=== PATIENT | female | born 1975 | race Caucasian/White ===

== ENCOUNTER 2021-03-17 08:47 | Outpatient (REF) | payer OTHER, SELFPAY ==
[2021-03-17 10:00] LABS: MANUAL DIFF FLAG NO
[2021-03-17 10:06] LABS: Basophils Absolute Auto 0.1 X10*3/uL (0.0-0.2); Basophils Percent Auto 0.8 % (0-2); Eosinophils Absolute Auto 0.2 X10*3/uL (0.0-0.4); Eosinophils Percent Auto 2.7 % (0-4); Hematocrit 38.7 % (37-47); Hemoglobin 12.8 g/dl (12.0-16.0); Imm Gran Abs Auto 0.02 X10*3/uL (0.00-0.03); Imm Gran Pct Auto 0.3 % (0.0-0.4); Lymphocytes Absolute Auto 2.1 X10*3/uL (1.2-4.9); Lymphocytes Percent Auto 33.3 % (20-40); Mean Corpuscular HGB Conc 33.1 g/dl (31.0-35.0); Mean Corpuscular Hemoglobin 31.9 pg (27.0-33.0); Mean Corpuscular Volume 96.5 fL (80-98); Mean Platelet Volume 10.7 fL (9.4-12.3); Monocytes Absolute Auto 0.4 X10*3/uL (0.1-1.2); Monocytes Percent Auto 6.9 % (2-11); Neutrophils Absolute Auto 3.5 X10*3/uL (2.0-8.3); Platelet Count 286 X10*3/uL (160-400); Red Blood Count 4.01 X10*6/uL (4.20-5.50); White Blood Count 6.3 X10*3/uL (4.8-10.8)
[2021-03-17 10:36] LABS: Alanine Aminotransferase 10 U/L (0-31); Alkaline Phosphatase 49 U/L (39-117); Anion Gap 10 (12-20); Aspartate Amino Transferase 11 U/L (5-31); Bilirubin Total 0.4 mg/dL (0.0-1.0); Blood Urea Nitrogen 20 mg/dL (9-16); Calcium 9.1 mg/dL (8.4-10.2); Carbon Dioxide 30 mmol/L (22-29); Chloride 104 mmol/L (96-108); Cholesterol 163 mg/dL; Estimated Glomerular Filt Rate > 60; Glucose Fasting 90 mg/dL (60-99); HDL Cholesterol 47 mg/dL; LDL Cholesterol Calculated 104 mg/dl; Potassium 4.5 mmol/L (3.3-5.1); Sodium 139 mmol/L (135-145); Total Protein 6.1 g/dL (6.5-8.0); Triglycerides 64 mg/dL
[2021-03-17 10:46] LABS: Vitamin D 25-OH Total 47.6 ng/mL (>30)
== END 2021-03-17 08:48 | disposition home or self-care (01) ==
LOC: HO.10HDL 08:47
PROVIDERS: Visit Provider Internal Medicine
DX: Z00.00 Encounter for general adult medical examination without abnormal findings (principal); E55.9 Vitamin D deficiency, unspecified
CPT/HCPCS: 36415; 80053; 80061; 82306; 85025

== ENCOUNTER 2022-03-07 09:58 | Outpatient (REF) | payer OTHER, SELFPAY ==
[2022-03-07 10:17] LABS: MANUAL DIFF FLAG NO
[2022-03-07 10:27] LABS: Basophils Percent Auto 0.6 % (0-2); Eosinophils Absolute Auto 0.1 X10*3/uL (0.0-0.4); Eosinophils Percent Auto 1.2 % (0-4); Hematocrit 41.8 % (37.0-47.0); Hemoglobin 13.7 g/dl (12.0-16.0); Imm Gran Abs Auto 0.02 X10*3/uL (0.00-0.03); Imm Gran Pct Auto 0.3 % (0.0-0.4); Lymphocytes Absolute Auto 1.9 X10*3/uL (1.2-4.9); Lymphocytes Percent Auto 29.2 % (20-40); Mean Corpuscular HGB Conc 32.8 g/dl (31.0-35.0); Mean Corpuscular Hemoglobin 31.4 pg (27.0-33.0); Mean Corpuscular Volume 95.7 fL (80.0-98.0); Mean Platelet Volume 9.7 fL (9.4-12.3); Monocytes Absolute Auto 0.5 X10*3/uL (0.1-1.2); Neutrophils Absolute Auto 4.1 x10*3/uL (2.0-8.3); Neutrophils Percent Auto 61.7 % (45-73); Platelet Count 311 X10*3/uL (160-400); Red Blood Count 4.37 X10*6/uL (4.20-5.50); Red Cell Distribution Width 13.2 % (11.0-16.0); White Blood Count 6.6 X10*3/uL (4.8-10.8)
[2022-03-07 11:16] LABS: Alanine Aminotransferase 10 U/L (0-31); Albumin Level 4.4 g/dL (3.5-5.0); Alkaline Phosphatase 55 U/L (39-117); Anion Gap 12 (12-20); Aspartate Amino Transferase 15 U/L (5-31); Bilirubin Total 0.6 mg/dL (0.0-1.0); Blood Urea Nitrogen 18 mg/dL (9-16); Calcium 9.8 mg/dL (8.4-10.2); Carbon Dioxide 25 mmol/L (22-29); Chloride 106 mmol/L (96-108); Cholesterol 203 mg/dL; Estimated Glomerular Filt Rate > 60; Glucose Random 93 mg/dL (60-115); Potassium 5.2 mmol/L (3.3-5.1); Sodium 138 mmol/L (135-145); Total Protein 7.3 g/dL (6.5-8.0)
== END 2022-03-07 09:59 | disposition home or self-care (01) ==
LOC: HO.10HDL 09:58
PROVIDERS: Visit Provider Internal Medicine
DX: Z00.00 Encounter for general adult medical examination without abnormal findings (principal)
CPT/HCPCS: 36415; 80053; 82465; 85025

== ENCOUNTER 2023-05-27 08:21 | Outpatient (REF) | payer OTHER, SELFPAY ==
[2023-05-27 08:38] LABS: MANUAL DIFF FLAG NO
[2023-05-27 08:53] LABS: Basophils Percent Auto 0.6 % (0-2); Eosinophils Absolute Auto 0.2 X10*3/uL (0.0-0.4); Eosinophils Percent Auto 3.2 % (0-4); Hematocrit 41.1 % (37.0-47.0); Hemoglobin 13.6 g/dl (12.0-16.0); Imm Gran Abs Auto 0.01 X10*3/uL (0.00-0.03); Imm Gran Pct Auto 0.2 % (0.0-0.4); Lymphocytes Absolute Auto 2.3 X10*3/uL (1.2-4.9); Mean Corpuscular HGB Conc 33.1 g/dl (31.0-35.0); Mean Corpuscular Hemoglobin 31.9 pg (27.0-33.0); Mean Corpuscular Volume 96.5 fL (80.0-98.0); Mean Platelet Volume 9.5 fL (9.4-12.3); Monocytes Absolute Auto 0.4 X10*3/uL (0.1-1.2); Monocytes Percent Auto 6.6 % (2-11); Neutrophils Absolute Auto 3.6 x10*3/uL (2.0-8.3); Neutrophils Percent Auto 54.4 % (45-73); Platelet Count 292 X10*3/uL (160-400); Red Blood Count 4.26 X10*6/uL (4.20-5.50); Red Cell Distribution Width 13.3 % (11.0-16.0); White Blood Count 6.6 X10*3/uL (4.8-10.8)
[2023-05-27 10:29] LABS: Alanine Aminotransferase 10 U/L (0-31); Albumin Level 3.9 g/dL (3.5-5.0); Alkaline Phosphatase 56 U/L (39-117); Anion Gap 9 (12-20); Aspartate Amino Transferase 12 U/L (5-31); Bilirubin Total 0.4 mg/dL (0.0-1.0); Blood Urea Nitrogen 17 mg/dL (9-16); Calcium 8.9 mg/dL (8.4-10.2); Carbon Dioxide 28 mmol/L (22-29); Chloride 109 mmol/L (96-108); Cholesterol 198 mg/dL; Estimated Glomerular Filt Rate > 60; Glucose Fasting 80 mg/dL (60-99); HDL Cholesterol 62 mg/dL; LDL Cholesterol Calculated 127 mg/dl; Potassium 4.7 mmol/L (3.3-5.1); Sodium 141 mmol/L (135-145); Total Protein 6.4 g/dL (6.5-8.0); Triglycerides 47 mg/dL
[2023-05-27 10:46] LABS: Vitamin D 25-OH Total 21.1 ng/mL (>30)
== END 2023-05-27 08:22 | disposition home or self-care (01) ==
LOC: HO.LAB 08:21
PROVIDERS: PCP Internal Medicine; Visit Provider Internal Medicine
DX: E55.9 Vitamin D deficiency, unspecified (principal); M19.011 Primary osteoarthritis, right shoulder; M19.012 Primary osteoarthritis, left shoulder; E66.3 Overweight; Z83.3 Family history of diabetes mellitus; Z82.49 Family history of ischemic heart disease and other diseases of the circulatory system
CPT/HCPCS: 36415; 80053; 80061; 82306; 85025

== ENCOUNTER 2024-04-22 14:30 | Outpatient (REF) | payer OTHER, SELFPAY ==
[2024-04-22 14:48] LABS: MANUAL DIFF FLAG NO
[2024-04-22 15:09] LABS: Basophils Percent Auto 0.4 % (0-2); Eosinophils Absolute Auto 0.1 X10*3/uL (0.0-0.4); Eosinophils Percent Auto 1.1 % (0-4); Hematocrit 42.9 % (37.0-47.0); Hemoglobin 14.7 g/dl (12.0-16.0); Imm Gran Abs Auto 0.03 X10*3/uL (0.00-0.03); Imm Gran Pct Auto 0.3 % (0.0-0.4); Lymphocytes Absolute Auto 2.5 X10*3/uL (1.2-4.9); Lymphocytes Percent Auto 26.8 % (20-40); Mean Corpuscular HGB Conc 34.3 g/dl (31.0-35.0); Mean Corpuscular Hemoglobin 32.2 pg (27.0-33.0); Mean Corpuscular Volume 94.1 fL (80.0-98.0); Mean Platelet Volume 9.8 fL (9.4-12.3); Monocytes Absolute Auto 0.5 X10*3/uL (0.1-1.2); Monocytes Percent Auto 5.1 % (2-11); Neutrophils Absolute Auto 6.3 x10*3/uL (2.0-8.3); Neutrophils Percent Auto 66.3 % (45-73); Platelet Count 323 X10*3/uL (160-400); Red Blood Count 4.56 X10*6/uL (4.20-5.50); Red Cell Distribution Width 13.3 % (11.0-16.0); White Blood Count 9.5 X10*3/uL (4.8-10.8)
[2024-04-22 15:50] LABS: Alanine Aminotransferase 11 U/L (0-31); Albumin Level 4.6 g/dL (3.5-5.0); Alkaline Phosphatase 53 U/L (39-117); Anion Gap 11 (12-20); Aspartate Amino Transferase 15 U/L (5-31); Bilirubin Total 0.3 mg/dL (0.0-1.0); Blood Urea Nitrogen 24 mg/dL (9-16); Calcium 9.7 mg/dL (8.4-10.2); Carbon Dioxide 29 mmol/L (22-29); Chloride 105 mmol/L (96-108); Cholesterol 251 mg/dL (<200); Estimated Glomerular Filt Rate > 60; Glucose Fasting 82 mg/dL (60-99); Potassium 4.7 mmol/L (3.3-5.1); Sodium 140 mmol/L (135-145); Total Protein 7.6 g/dL (6.5-8.0)
[2024-04-22 16:06] LABS: Thyroid Stimulating Hormone 1.47 uIU/mL (0.32-4.0); Vitamin D 25-OH Total 24.9 ng/mL (>30)
== END 2024-04-22 14:31 | disposition home or self-care (01) ==
LOC: HO.LAB 14:30
PROVIDERS: PCP Internal Medicine; Visit Provider Internal Medicine
DX: E55.9 Vitamin D deficiency, unspecified (principal); R63.5 Abnormal weight gain
CPT/HCPCS: 36415; 80053; 82306; 82465; 84443; 85025

== ENCOUNTER 2025-04-23 10:09 | Outpatient (AMB) | payer BC, SELFPAY ==
--- NOTE | 2025-04-23 10:11 | MHC.PC.OV ---
Vital Signs 04/23/25 10:17 Height 5 ft 3.5 in Weight 102.058 kg BMI 39.2 BP 106/84 Respiration 16 Pulse 62 Pulse Source Pulse Oximeter Temp 96.9 F Temp Source Temporal Artery Scan Pulse Oximetry (%) 99 Oxygen Delivery Method Room Air Intake Visit Reasons: routine - see comments Parks And Recreation Manager Required: No Accompanied by: Self / Same As Patient Allergies No Known Allergies (No Known Allergies*) Allergy (Unverified 04/23/25 10:11) HPI HPI Comments History of Present Illness Details Concerns: none weight watchers for a while. expensive. in process of switching job. works maintenance in elderly, now at [employer] at [employer]. sun screen protein shakes- fills somewhat . no formal exercise chronic shoulder pain - has seen ortho- reconst surgery 7-8 hours labrum, cuff, ligaments, screw, anchors fiberoptic wire R. awaiting repacement 6 years. L arm overuse as couldnt use R. soma night. oxy bid. end of day. on way home, and bedtime. neos- 2 years ago shoulder. 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 1. Little interest or pleasure in doing things: not at all 2. Feeling down, depressed, or hopeless: not at all 3. Trouble falling or staying asleep, or sleeping too much: several days 4. Feeling tired or having little energy: several days 5. Poor appetite or overeating: not at all 6. Feeling bad about yourself - or that you are a failure or have let yourself or your family down: not at all 7. Trouble concentrating on things, such as reading the newspaper or watching television: not at all 8. Moving or speaking so slowly that other people could have noticed. Or the opposite - being so fidgety or restless that you have been moving around a lot more than usual: not at all 9. Thoughts that you would be better off or of hurting yourself in some way: not at all Total score: 2 Depression Screening Interpretation: Negative Depression Screening Done: Yes 76129 - PHQ-9 Billing: Yes Source: Developed by Drs. Marino Holman, Jennifer Saenz, Homar Rouse and colleagues, with an educational kiki from [employer]. Thrive Questionnaire Date Thrive assessed: 04/23/25 I am a: Patient What is your living situation today?: I have a steady place to live Within the past 12 months, did the food you bought not last and you didn't have the money to get more?: Never true Within the past 12 months, did you worry whether your food would run out before you got money to buy more?: Never true Do you have trouble paying for medicines?: No Do you have trouble getting transportation to medical appointments?: No Do you have trouble paying your heating and electricity bill?: No Do you have trouble taking care of your child, family member or friend?: No Do you have trouble with day-to-day activities such as bathing, preparing meals, shopping, managing finances, etc.?: No Are you currently unemployed and looking for a job?: No Are you interested in more education?: No Please select the resources that you would like help with: None THRIVE Score: 0 RICHARD-7 AMB Questionnaire RICHARD-7 Date RICHARD - 7 assessed: 04/23/25 Feeling nervous, anxious, or on edge: 0 = Not at all Not being able to stop or control worryin = Several days Worrying too much about different things: 1 = Several days Trouble relaxin = Not at all Being so restless that it is hard to sit still: 0 = Not at all Becoming easily annoyed or irritable: 0 = Not at all Feeling afraid as if something awful might happen: 0 = Not at all Total RICHARD-7 score (0-4 normal; 5-9 mild; 10-14 moderate; 15-21 severe): 2 Source: Developed by Drs. Marino Holman, Jennifer Saenz, Homar Rouse and colleagues, with an educational kiki from [employer]. Physical exam (Primary Care) Vital Signs: Last Vital Signs Temp 96.9 F 04/23/25 10:17 Pulse 62 04/23/25 10:17 Resp 16 04/23/25 10:17 BP 106/84 04/23/25 10:17 Pulse Ox 99 04/23/25 10:17 Oxygen Delivery Method Room Air 04/23/25 10:17 BMI result Body Mass Index 39.2 Tobacco/Smoking Status: Tobacco use Status Patient Tobacco Use Status Former Tobacco user 04/23/25 10:19 Depression Screening Interpretation: Negative Coding Level of Care Code New Pt Level 4 (76060) Complex EM visit Add On G2211 Diagnoses Chronic pain of both shoulders M25.511; M25.512; G89.29 Vitamin D deficiency E55.9 Obesity E66.9 Generalized anxiety disorder F41.1 Additional Codes PHQ-9 - 94515 - PHQ-9 Billing: Yes ([id number]) Assessment & Plan Assessment & Plan (1) Chronic pain of both shoulders: Code(s): M25.511 - Pain in right shoulder; M25.512 - Pain in left shoulder; G89.29 - Other chronic pain Category: Medical Plan: Stable overall. Pain managed with oxycodone 5 mg twice daily as needed and Soma at bedtime. Mass pat reviewed (2) Vitamin D deficiency: Code(s): E55.9 - Vitamin D deficiency, unspecified Category: Medical Plan: Vitamin-D level ordered (3) Obesity: Code(s): E66.9 - Obesity, unspecified Category: Medical Plan: Weight loss efforts encouraged. Advised to download sangeeta to help track calories and macros and helped to maintain calorie deficit. Recommend diet higher in protein, fruits, vegetables and lower and refined sugars, simple carbohydrates, and highly processed foods. Recommend initiating formal exercise routine. (4) Generalized anxiety disorder: Code(s): F41.1 - Generalized anxiety disorder Category: Medical Plan: Stable. Richard 7 scores 2. Continue with positive coping mechanisms. Plan Follow-up in the office in 4 months for annual physical exam. Advised to present to the office several days prior to visit for labs to be completed. Orders: Orders Basic Metabolic Panel 4 Months E55.9 - Vitamin D deficiency, unspecified, E66.9 - Obesity, unspecified, G89.29 - Other chronic pain, M25.511 - Pain in right shoulder, M25.512 - Pain in left shoulder, Z00.00 - Encounter for general adult medical examination without abnormal findings Complete Blood Count Auto Diff 4 Months E55.9 - Vitamin D deficiency, unspecified, E66.9 - Obesity, unspecified, G89.29 - Other chronic pain, M25.511 - Pain in right shoulder, M25.512 - Pain in left shoulder, Z00.00 - Encounter for general adult medical examination without abnormal findings Hemoglobin A1c 4 Months E55.9 - Vitamin D deficiency, unspecified, E66.9 - Obesity, unspecified, G89.29 - Other chronic pain, M25.511 - Pain in right shoulder, M25.512 - Pain in left shoulder, Z00.00 - Encounter for general adult medical examination without abnormal findings Lipid Panel 4 Months E55.9 - Vitamin D deficiency, unspecified, E66.9 - Obesity, unspecified, G89.29 - Other chronic pain, M25.511 - Pain in right shoulder, M25.512 - Pain in left shoulder, Z00.00 - Encounter for general adult medical examination without abnormal findings Vitamin D 25-OH Total 4 Months E55.9 - Vitamin D deficiency, unspecified, E66.9 - Obesity, unspecified, G89.29 - Other chronic pain, M25.511 - Pain in right shoulder, M25.512 - Pain in left shoulder, Z00.00 - Encounter for general adult medical examination without abnormal findings Liver Panel 4 Months E55.9 - Vitamin D deficiency, unspecified, E66.9 - Obesity, unspecified, G89.29 - Other chronic pain, M25.511 - Pain in right shoulder, M25.512 - Pain in left shoulder, Z00.00 - Encounter for general adult medical examination without abnormal findings
[2025-04-23 10:17] VITALS: BP 106/84; PULSE 62; RESP 16; TEMP 36.1; O2SAT 99; BMI 39.2
--- OUTSIDE RECORDS SUMMARY | 2025-04-23 11:29 | XMS_ITS | Data Portability ---
Author Organization [place] [facility] Address [address] [place] [address] Assessment No assessment recorded. Plan of Treatment Reminders Order Date Submit Date Provider Last Modified By Organization Details Last Modified Time Details Appointments None recorded. Lab None recorded. Referral physical therapist referral - (THIS PRESCRIPTIO N EXPIRES 30 DAYS FROM DATE LISTED)PHYS ICAL THERAPY REFERRAL ICD-10: M70.61 (right) Right hip greater trochanteri c bursitis1. Core stabilizati on, hip abductor strengtheni ng with focus on eccentric strengtheni ng and balance training.2. Soft tissue modalities including foam rollers as needed.3. Home exercise and stretching program.All ow 2-3 visits a week for 6 weeks.Compl eted by: rajni 2023 024 [email or web address] [id number] Not available 4 11:41:38 Procedures None recorded. Surgeries None recorded. Imaging XR, hip, unilateral, 2 or 3 view 2023 024 [email or web address] Not available 4 12:04:28 Medication Orders None recorded. Patient TargetsNo targets recorded. Patient InstructionsNo instructions recorded. Reason for Referral Physical Therapist Referral for Trochanteric bursitis of right hip (THIS PRESCRIPTION EXPIRES 30 DAYS FROM DATE LISTED)PHYSICAL THERAPY REFERRAL ICD-10: M70.61 (right) Right hip greater trochanteric bursitis1. Core stabilization, hip abductor strengthening with focus on eccentric strengthening and balance training.2. Soft tissue modalities including foam rollers as needed.3. Home exercise and stretching program.Allow 2-3 visits a week for 6 weeks.Completed by: rajni Referring Physician: Cate Galloway, Orthopedic Surgery, [id number] Encounter Date: 02/08/2024 Results Created Date Observation Date Name Description Value Unit Range Abnormal Flag Note LastModifiedBy Organization Detail LastModifiedTime 07/06/2008/06/2019 imagi ng/di agnos tic resul t No observ ation record ed. [email or web address] Not Available 06/08 01:29:38 07/06/2008/06/2019 imagi ng/di agnos tic resul t No observ ation record ed. [email or web address] Not Available 06/08 01:29:39 Result Notes None recorded. Problems Name Problem SNOMED Code Status Onset Date Resolution Date Notes Provider Name and Address Organization Details Recorded Time Pain of hip region 38751362 Active 024 leatha quinones [facility] 02/08/2024 10:54:30 Pain of hip region 90715703 [facility] 02/08/2024 10:55:01 Problem Notes None recorded. Procedures Surgical History Date Name Laterality Status Provider Name and Address Organization Details Recorded Time Hip Kenalog 1cc Injection, L/R completed Cate Galloway PA-C [address] [facility] [address], [place], [address], [facility] 02/08/2024 17:45:19 Imaging Results None recorded. Procedure Notes None recorded. Medical Equipment None Reported. Allergies No known drug allergies Medications Name Sig Start Date Stop Date Status Note LastModified by Organization Details LastModified Time carisoprodol 350 mg tablet TAKE 1 TABLET BY MOUTH EVERY NIGHT active Not Available Not Available No t Available oxycodone 5 mg tablet TAKE 1 TABLET BY MOUTH TWICE DAILY active Not Available Not Available No t Available Vitals Date Recorded Body height Body mass index (BMI) Body weight Provider Name and Address Organization Details Last Updated DateTime 02/08/2024 160.02 cm 35.4 kg/m2 25217.47 g leatha quinones [facility] 02/08/2024 10:56:42 Social History None recorded. Functional Status None recorded. Mental Status None recorded. Family History Nothing Reported. Medical History No medical history recorded. Gynecological HistoryNo gynecological history recorded. Obstetrics History GPAL:G 0 P 0 0 0 0 Past Encounters Encounter ID Performer Location Encounter Start Date Encounter Closed Date Diagnosis/Indication Diagnosis SNOMED-CT Code Diagnosis ICD10 Code Diagnosis Note [id number] Cate Galloway PA-C [facility] [address] [place] [address] 02/08/2024 10:19:52 03/05/2024 20:52:25 Pain of hip region 33893390 M25.551 Trochanter ic bursitis of right hip 4450837231 68887 M70.61 Health Concerns Section Related Observation LastModified by Organization Detai ls LastModified Time None Recorded Concern Status LastModified by Organization Details LastModified Time None Recorded Advance Directives Directive None Recorded Payers Insurance Date Sequence Insurance Name Policy Number Policy Rubin Covered Member ID Rubin Member ID Guarantor Name 03/26/2024 1 [facility] [id number] Noemí Mccallumlaureen [id number] Noemí Rochelleaidanlaureen 02/08/2024 1 [facility] [place] [id number] Noemí Mccallumllsaul [id number] Noemí Mccallumserenitysaul Notes Date Note Type Note Provider Name and Address Organization Details Recorded Time 02/08/2024 text/html I am seeing the patient today under the supervision of Dr. Ayala who was available but who did not see the patient. HPI:Noemí presents to the office today for an evaluation of her right hip. She admits to lateral hip pain which has been present for many months. No recent trauma. She describes her pain as being in the region of the greater trochanter which at times radiates down the IT band to the knee. Symptoms are most significant was sleeping at night, prolonged sitting, getting up from a seated position, and climbing stairs. She denies any groin pain. She will take rydl-epl-unulmvy medication intermittently. She is here today for treatment recommendations. PMH/PSH/MEDS/ALL/FMH/ SOC HX/ROS are reviewed in detail per my medical intake sheet. General Exam: Vital signs are as noted below Mental status: Alert and lucid. Normal insight, affect and grooming. RECEIVING COORDINATOR: Gross motor coordination is intact. No spasticity or clonus noted. EXAMINATION: The patient is well appearing and in no apparent distress. Alert and oriented x3. Gait is antalgic. Right hip reveals no obvious deformity upon inspection. No edema, erythema, ecchymosis, or lesions. Neurovascularly intact. Tenderness present over the greater trochanter. ROM full in all planes. Negative impingement sign, Terrence's, Stinchfield test, and straight leg raise. No instability. 5/5 strength. Calf/leg compartments soft and compressible. Contralateral hip reveals no obvious deformity upon inspection. No edema, erythema, ecchymosis, or lesions. Neurovascularly intact. No localized tenderness. ROM full in all planes. Negative impingement sign, Terrence's, Stinchfield test, and straight leg raise. No instability. 5/5 strength. Calf/leg compartments soft and compressible. Lumbar spine reveals no obvious deformities upon inspection. No edema, erythema, ecchymosis, or lesions. ROM is full and pain free. Straight leg raise is negative in the sitting and supine position. No focal neurologic deficits in the lower extremities. X-rays ordered, obtained and reviewed at [facility] today include an AP pelvis and lateral view of right hip. Images reveal the joint spaces to be well maintained. There is hip dysplasia bilaterally. No evidence for an acute fracture or lesion. IMPRESSION: Right hip greater trochanteric bursitis PLAN: The patient was thoroughly counseled today regarding their hip condition, its natural history, and the treatment options including physical therapy, medication, and a corticosteroid injection. The patient is interested in receiving an injection with corticosteroid. Right trochanteric region was prepped sterilely, and injection was administered at the point of maximum tenderness utilizing 40mg of Kenalog and 4cc of 0.25% Marcaine. The patient tolerated the procedure well. Post-injection precautions were discussed. A prescription for physical therapy has been provided. I will see her back in the office in 6 weeks for recheck. All questions have been answered. [employer] [facility] speech recognition geneticist software was used to create portions of this document. An attempt at proofreading has been made to minimize errors. Please call for corrections. Cate Galloway PA-C [address], [place], [address], [facility] 02/08/2024 17:46:29 OBGyn Episode No OBEpisode recorded.
== END 2025-04-23 10:46 | disposition home or self-care (01) ==
LOC: HO.HMCHD 10:10
PROVIDERS: PCP Internal Medicine; Visit Provider Physician Assistant
DX: M25.511 Pain in right shoulder (principal); M25.512 Pain in left shoulder; G89.29 Other chronic pain; E55.9 Vitamin D deficiency, unspecified; E66.9 Obesity, unspecified; F41.1 Generalized anxiety disorder

== ENCOUNTER → 2025-04-23 10:09 | Outpatient (BNVA) | payer BC, SELFPAY | PROVIDERS: PCP Internal Medicine; Visit Provider Physician Assistant | DX: M25.511 Pain in right shoulder (principal); M25.512 Pain in left shoulder; G89.29 Other chronic pain; F41.1 Generalized anxiety disorder; E66.9 Obesity, unspecified; E55.9 Vitamin D deficiency, unspecified; Z79.891 Long term (current) use of opiate analgesic; Z13.31 Encounter for screening for depression; Z13.30 Encounter for screening examination for mental health and behavioral disorders, unspecified | CPT/HCPCS: 96127 ==

== ENCOUNTER 2025-09-01 15:59 | Outpatient (AMB) | payer BC, SELFPAY ==
--- OUTSIDE RECORDS SUMMARY | 2024-12-02 05:30 | XMS_ITS ---
Author Organization [facility] Address [address] [place] [address] Care Team Providers Care Oxygen Therapist Name Role Phone Raya (RETIRED) Jerrell CHAO Primary Care Provide Marino Tom [phone] REASON FOR VISIT screening Encounters Encounter Location Date Provider Diagnosis [facility] Outpatient [address] [place], [place] [id number] 12/02/2024 Marino Galeas Plan Of Treatment No Information Progress Notes * MIKE GOMEZDOB: [birth year] (49 yo F)Acc No.[id number]:12/02/2024 COLON WITH MAC Patient: MIKE HDZ Provider: Damien Galeas MD :1975 A ge:49 Y S ex:Female Date:12/02/2024 Address:[address] [place], [place] [id number] Pcp:Jerrell Dos Santos (RETIRED )MD Subjective: * Chief Complaints: * 1 . Screening. * Medical History: Objective: * Vitals: Assessment: Plan: * Treatment: * * The named appointment provid er may or may not be the originator of this progress note, and it is not deemed complete until electronically signed by the appointment provider. Sign off status: Pending * Provider: Damien Galeas MD Date: 0 12/02/2024 Generated for Printi ng/Faxing/eTransmitting on: 06:58 PM EDT
--- OUTSIDE RECORDS SUMMARY | 2025-03-05 04:30 | XMS_ITS ---
Author Organization [facility] Address [address] [place] [address] Care Team Providers Care Pharmacology Associate Name Role Phone Raya (RETIRED) Jerrell CHAO Primary Care Provide Marino Tom [phone] REASON FOR VISIT screening Encounters Encounter Location Date Provider Diagnosis [facility] Outpatient [address] [place], [place] [phone] 03/05/2025 Marino Galeas Plan Of Treatment No Information Progress Notes * MIKE GOMEZDOB: [birth year] (49 yo F)Acc No.[id number]:03/05/2025 COLON WITH MAC Patient: MIKE HDZ Provider: Damien Galeas MD :1975 A ge:49 Y S ex:Female Date:03/05/2025 Address:[address] [place], [place] [phone] Pcp:Jerrell Dos Santos (RETIRED )MD Subjective: * [...] Galeas MD Date: 0 03/05/2025 Generated for Printi ng/Faxing/eTransmitting on: 1 06:58 PM EDT
--- NOTE | 2025-09-01 14:41 | A.OFFPC_ITS ---
Vital Signs 09/01/25 16:07 Height 5 ft 2.6 in Weight 95.708 kg BMI 37.9 BP 138/80 Blood Pressure Location Lt brachial Position Sitting Respiration 18 Pulse 78 Pulse Source Pulse Oximeter Temp 97.5 F Temp Source Temporal Artery Scan Pulse Oximetry (%) 98 Oxygen Delivery Method Room Air Intake Visit Reasons: 4 Month F/U Emergency Specialist Required: No Accompanied by: Self / Same As Patient Allergies No Known Allergies (No Known Allergies*) Allergy (Verified 09/01/25 14:42) Tobacco use date assessed: 09/01/25 Dental Screening Dental Screen Date: 09/01/25 Did you have a dental visit in the last 12 months?: No Did you have a dental problem in the last 6 months where you did not have access to dental care?: No Was dental information given to patient?: Patient has dentist HPI HPI Comments History of Present Illness0 Details 49-year-old female with history of basal cell carcinoma, chronic pain of the shoulders bilaterally, vitamin-D deficiency, anxiety, obesity presents to the office today for management of chronic conditions and follow-up. Vitamin-D deficiency-taking multivitamin but not taking stand-alone vitamin-D supplement Basal cell carcinoma-follows with dermatology, s/p Mohs procedure Generalized anxiety disorder-not on any anxiolytics. Does not follow with therapy. Reports generalized stress related to her job and is also currently going through a divorce. However, manages her symptoms with mindfulness as well as reiki. No depressive symptoms Concerns: Chronic pain of the shoulders bilaterally- follows with new dose. Underwent reconstructive reconst surgery 7-8 hours labrum, cuff, ligaments, screw, anchors fiberoptic wire. Underwent 9 months of physical therapy. Left arm now with pain from overuse as she was unable to use her right arm for years. Reports she will need bilateral shoulder replacements in several years. She is chronically on Soma and uses oxycodone as needed. none Obesity-started Zepbound following last visit. Tolerating well without any adverse side effects. Does report decreased appetite and cravings. Still eating regularly throughout the day with emphasis on protein. Has lost 14 lb since last visit. She is not exercising formally. Considering increase in dose at next refill Concerns: None Health maintenance: Last screening mammogram 02/2021, overdue. 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 No sore throat, nasal congestion, rhinorrhea, sinus pain, ear pain Cardiovascular: No chest pain, palpitations, or leg edema Respiratory: No shortness of breath, wheezing, cough GI: No abdominal pain, nausea, vomiting, diarrhea, constipation, melena, hematochezia : No dysuria, hematuria, increased urinary frequency, decreased urinary output MSK: See HPI Neuro: No headaches, weakness, paresthesias Skin: No rashes or lesions EXAM: Constitutional - Awake and Alert, No apparent distress Eyes - PERRL Cardiovascular - S1S2, RRR, No edema Respiratory - Normal lung expansion, Normal respiratory effort, No respiratory distress, CTA bilaterally Extremities - no calf tenderness bilaterally, no swelling Skin - Warm/Dry Neurological - Alert & oriented x3 Psychological - Appropriate affect PFSH Medical History (Updated 04/23/25 @ 10:50 by DAWN Guerrero) Obesity Vitamin D deficiency Chronic pain of both shoulders Generalized anxiety disorder Basal cell carcinoma Surgical History (Updated 03/03/25 @ 11:09 by Lisa Elise, BETTY) Hx of knee surgery Hx of shoulder surgery (2019) Hx of shoulder surgery Social History (Updated 03/03/25 @ 11:15 by Lisa Elise RN) Housing: Apartment Patient Tobacco Use Status: Former Tobacco user Years Smoked: 10 years e-Cigarette/Vaping Use: Never Used service: No Current occupational status: employed 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 How often do you have a drink containing alcohol?: Monthly or less 2. How many drinks containing alcohol do you have on a typical day when you are drinking?: 1 or 2 3. How often do you have six or more drinks on one occasion?: Never Total Score: 1 RICHARD-7 AMB Questionnaire RICHARD-7 Date RICHARD - 7 assessed: 04/23/25 Source: Developed by Drs. Marino Holman, Jennifer Saenz, Homar Rouse and colleagues, with an educational kiki from [employer]. Physical exam (Primary Care) Vital Signs: Last Vital Signs Temp 97.5 F 09/01/25 16:07 Pulse 78 10/27/25 16:07 Resp 18 09/01/25 16:07 BP 138/80 09/01/25 16:07 Pulse Ox 98 09/01/25 16:07 Oxygen Delivery Method Room Air 09/01/25 16:07 BMI result Body Mass Index 37.9 Tobacco/Smoking Status: Tobacco use Status Tobacco use date assessed 09/01/25 09/01/25 14:42 Patient Tobacco Use Status Former Tobacco user 09/01/25 14:42 e-Cigarette/Vaping Use Never Used 09/01/25 16:10 Thrive Assessment: Date of Thrive Assessment Date Thrive assessed 04/23/25 09/01/25 14:42 Coding Level of Care Code Est Pt Level 4 (61501) Complex EM visit Add On G2211 Diagnoses Chronic pain of both shoulders M25.511; M25.512; G89.29 Vitamin D deficiency E55.9 Obesity E66.9 Generalized anxiety disorder F41.1 Assessment & Plan Assessment & Plan (1) Chronic pain of both shoulders: Code(s): M25.511 - Pain in right shoulder; M25.512 - Pain in left shoulder; G89.29 - Other chronic pain Category: Medical Plan: Stable overall. Pain managed with oxycodone 5 mg twice daily as needed and Soma at bedtime. Mass pat reviewed (2) Vitamin D deficiency: Code(s): E55.9 - Vitamin D deficiency, unspecified Category: Medical Plan: Vitamin-D level ordered (3) Obesity: Code(s): E66.9 - Obesity, unspecified Category: Medical Plan: Weight loss efforts encouraged. Advised to download sangeeta to help track calories and macros and helped to maintain calorie deficit. Recommend diet higher in protein, fruits, vegetables and lower and refined sugars, simple carbohydrates, and highly processed foods. Recommend initiating formal exercise routine. Continue with Zepbound, can increase to 5 mg weekly at if she desires (4) Generalized anxiety disorder: Code(s): F41.1 - Generalized anxiety disorder Category: Medical Plan: Stable. Richard 7 scores 2. Continue with positive coping mechanisms. Plan Follow-up in the office in 6 months for follow-up. Labs to be completed today Orders: Orders Vitamin B12 Today E55.9 - Vitamin D deficiency, unspecified, E66.9 - Obesity, unspecified, F41.1 - Generalized anxiety disorder, G89.29 - Other chronic pain, M25.511 - Pain in right shoulder, M25.512 - Pain in left shoulder, Z51.81 - Encounter for therapeutic drug level monitoring Vitamin B6 Today E55.9 - Vitamin D deficiency, unspecified, E66.9 - Obesity, unspecified, F41.1 - Generalized anxiety disorder, G89.29 - Other chronic pain, M25.511 - Pain in right shoulder, M25.512 - Pain in left shoulder, Z51.81 - Encounter for therapeutic drug level monitoring
[2025-09-01 16:07] VITALS: BP 138/80; PULSE 78; RESP 18; TEMP 36.4; O2SAT 98; BMI 37.9
--- OUTSIDE RECORDS SUMMARY | 2025-09-01 18:58 | XMS_ITS | Patient Health Record ---
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 Raya (RETIRED) Jerrell CHAO Primary Care Provide r Marino Yen Unavailable [phone] Allergies No Known Allergies Reason For Referral No Information Medications Medication SIG (Take, Route, Fr equency, Duration) Notes Start Date End Date Status Carisoprodol 350 MG TAKE 1 TABLET BY MARIANA TH EVERY NIGHT Oral; Duration: 30 Active oxyCODONE HCl 5 MG TAKE 1 TABLET BY MARIANA TH TWICE DAILY Oral; Duration: 30 Active Social History Tobacco Use: Social History Observation Description Date Details (start date - stop date) Former Smoker NA - NA Tobacco Use/Smoking Question Answer Notes Patient is a former smoker How long has it been since you last smoked? > 10 years Alcohol Screen Question Answer Notes Did you have a drink contain ing alcohol in the past year? Yes How often did you have a dri nk containing alcohol in the past year? Monthly or less (1 point) How many drinks did you have on a typical day when you were drinking in the past year? 1 or 2 drinks (0 point) How often did you have 6 or more drinks on one occasion in the past year? Never (0 point) Points 1 Interpretation Negative Section Notes: Nonsmoker, no sig alcohol Problems Problem Type SNOMED Code ICD Code Onset Dates Problem Status W/U Status Risk Notes Problem Colon cancer screening (145556252) Colon cancer screening (Z12.11) Active confirmed Problem Pre-procedure evaluation check (216008429) Encounter for other preprocedural examination (Z01.818) Active confirmed Encounters Encounter Location Date Provider Diagnosis [facility] [address] [place] [address] 11/07/2024 Marino Galeas [facility] [address] [place] [address] 11/28/2024 Marino Galeas [facility] [address] [place] [address] 03/08/2025 Marino Galeas Plan Of Treatment Future Test Test Name Order Date COLONOSCOPY 07/30/2024 Insurance Providers Payer Name Payer Address Payer Phone Subscriber Number Group Number Insured Name Patient Relationship to Insured Coverage Start Date Coverage End Date O [employer] [address] [place] [address] [phone] [id number] MIKE GOMEZ Self - patient is the insured Medical (General) History Medical History History ICD Code Denies [place],DM,CVA,Lung disease,renal dise ase Shoulder pain Surgical History Surgery Date(Month/Year) shoulder surgery on left x 1 2019 Shoulder surgery on the right x 2 2016 Knee
--- OUTSIDE RECORDS SUMMARY | 2025-09-01 18:58 | XMS_ITS | Data Portability ---
Author Organization [place] [facility] Address [address] [place] [address] Assessment No assessment recorded. Plan of Treatment Reminders Order Date Submit Date Provider Last Modified By Organization Details Last Modified Time Details Appointments None recorded. Lab None recorded. Referral physical therapist referral - (THIS PRESCRIPTIO N EXPIRES 30 DAYS FROM DATE LISTED) PHYSICAL THERAPY REFERRAL ICD-10: M70.61 (right) Right hip greater trochanteri c bursitis 1. Core stabilizati on, hip abductor strengtheni ng with focus on eccentric strengtheni ng and balance training. 2. Soft tissue modalities including foam rollers as needed. 3. Home exercise and stretching program. Allow 2-3 visits a week for 6 weeks. Completed by: rajni 2023 024 7 Not available 4 11:41:38 Procedures None [...] rajni Referring Physician: Cate Galloway, Orthopedic Surgery, [id number] Encounter Date: 02/08/2024 Results Created Date Observation [...] Details Recorded Time Pain of hip region 96878595 Active 024 leatha quinones [facility] 02/08/2024 10:54:30 Pain of hip region 48251517 [facility] 02/08/2024 10:55:01 Problem Notes None recorded. Procedures Surgical History Date Name Laterality Status Provider Name and Address Organization Details Recorded Time Hip Kenalog 1cc Injection, L/R completed Cate Galloway PA-C [address], [place], [address], [facility] 02/08/2024 17:45:19 Imaging Results None recorded. [...] Updated DateTime 02/08/2024 160.02 cm 35.4 kg/m2 98635.47 g leatha quinones [facility] 02/08/2024 10:56:42 Social History None recorded. Functional Status None recorded. Mental Status None recorded. Family History Nothing Reported. Medical History No medical history recorded. Gynecological HistoryNo gynecological history recorded. Obstetrics History GPAL:G 0 P 0 0 0 0 Past Encounters Encounter ID Performer Location Encounter Start Date Encounter Closed Date Diagnosis/Indication Diagnosis SNOMED-CT Code Diagnosis ICD10 Code Diagnosis IMO Codes Diagnosis Note [id number] Cate Galloway PA-C [address] [place] [address] 02/08/2024 10:19:52 03/05/2024 20:52:25 Pain of hip region 74539811 M25.551 Trochanter ic bursitis of right hip 8500261177 48487 M70.61 Health Concerns Section Related Observation LastModified by Organization Detai ls LastModified Time None Recorded Concern Status LastModified by Organization Details LastModified Time None Recorded Advance Directives Directive None Recorded Payers Insurance Date Sequence Insurance Name Policy Number Policy Rubin Covered Member ID Rubin Member ID Guarantor Name 03/26/2024 1 [facility] [id number] Noemí Mccallumlaureen [id number] Noemí Rochelleaidanlaureen 02/08/2024 1 [facility] [id number] Noemí Mccallumlaureen [id number] Noemí Mahoney Notes Date Note Type Note Provider Name [...] denies any groin pain. She will take yhcv-fkj-cygkiyn medication intermittently. She is here today for treatment recommendations. PMH/PSH/MEDS/ALL/FMH/ SOC HX/ROS are reviewed in detail per my medical intake sheet. General Exam: Vital signs are as noted below Mental status: Alert and lucid. Normal insight, affect and grooming. OCCUPATIONAL HEALTH MANAGER: Gross motor coordination is intact. No spasticity [...] extremities. X-rays ordered, obtained and reviewed at [facility] today include an AP pelvis and lateral [...] for recheck. All questions have been answered. [employer]pos speech recognition clothing patternmaker software was used to create portions of this document. An attempt at proofreading has been made to minimize errors. Please call for corrections. Cate Galloway PA-C [address] [place], [place] [address]ada[facility] [address], [place], [address], [facility] 02/08/2024 17:46:29 OBGyn Episode No OBEpisode recorded.
== END 2025-09-01 16:32 | disposition home or self-care (01) ==
LOC: HO.HMCHD 15:59
PROVIDERS: PCP Internal Medicine; Visit Provider Physician Assistant
DX: M25.511 Pain in right shoulder (principal); M25.512 Pain in left shoulder; G89.29 Other chronic pain; E55.9 Vitamin D deficiency, unspecified; E66.9 Obesity, unspecified; F41.1 Generalized anxiety disorder

== ENCOUNTER 2025-09-30 15:54 | Outpatient (REF) | payer BC, SELFPAY ==
--- OUTSIDE RECORDS SUMMARY | 2024-12-02 04:30 | XMS_ITS ---
Author Organization [facility] Address [address] [place] [address] Care Team Providers Care Copy Camera Operator Name Role Phone Raya (RETIRED) Jerrell CHAO Primary Care Provide Marino Tom [phone] REASON FOR VISIT screening Encounters Encounter Location Date Provider Diagnosis [facility] Outpatient [address] [place], [place] [id number] 12/02/2024 Marino Galeas Plan Of Treatment No Information Progress Notes * MIKE GOMEZDOB: [birth year] (49 yo F)Acc No.[id number]:12/02/2024 COLON WITH MAC Patient: MIKE HDZ Provider: Damien Galeas MD :1975 A ge:49 Y S ex:Female Date:12/02/2024 Address:[address] [place], [place] [id number] Pcp:Jerrell Dos Santos (RETIRED )MD Subjective: * Chief Complaints: * S creening * The named appointment provid er may or may not be the originator of this progress note, and it is not deemed complete until electronically signed by the appointment provider. Sign off status: Pending * Provider: Damien Galeas MD Date: 0 12/02/2024 Generated for Gerardo rutherford/Dianelys/eTransmitting on: 11/30/2024 07:22 PM EST
--- OUTSIDE RECORDS SUMMARY | 2025-03-05 03:30 | XMS_ITS ---
Author Organization [facility] Address [address] [place] [address] Care Team Providers Care Aoc Operations Intelligence Officer Name Role Phone Raya (RETIRED) Jerrell CHAO Primary Care Provide Marino Tom [phone] REASON FOR VISIT screening Encounters Encounter Location Date Provider Diagnosis [facility] Outpatient [address] [place], [place] [phone] 03/05/2025 Marino Galeas Plan Of Treatment No Information Progress Notes * MIKE GOMEZDOB: [birth year] (49 yo F)Acc No.[id number]:03/05/2025 COLON WITH MAC Patient: MIKE HDZ Provider: Damien Galeas MD :1975 A ge:49 Y S ex:Female Date:03/05/2025 Address:[address] [place], [place] [phone] Pcp:Jerrell Dos Santos (RETIRED )MD Subjective: * Chief Complaints: * S creening Billing Information: * Procedure Codes: * The named appointment provid er may or may not be the originator of this progress note, and it is not deemed complete until electronically signed by the appointment provider. Sign off status: Pending * Provider: Damien Galeas MD Date: 0 03/05/2025 Generated for Gerardo ng/Famargaritag/eTransmitting on: 11/30/2024 07:21 PM EST
[2025-09-30 16:15] LABS: MANUAL DIFF FLAG NO
[2025-09-30 17:17] LABS: Hematocrit 45.0 % (37.0-47.0); Hemoglobin 14.9 g/dl (12.0-16.0); Imm Gran Abs Auto 0.02 X10*3/uL (0.00-0.03); Imm Gran Pct Auto 0.2 % (0.0-0.4); Lymphocytes Absolute Auto 3.5 X10*3/uL (1.2-4.9); Mean Corpuscular HGB Conc 33.1 g/dl (31.0-35.0); Mean Corpuscular Hemoglobin 31.4 pg (27.0-33.0); Mean Corpuscular Volume 94.9 fL (80.0-98.0); NRBC Abs Auto 0.000 X10*3/uL (0.0-0.012); NRBC Pct Auto 0.0 /100WBC (0.0-0.2); Platelet Count 289 X10*3/uL (160-400); Red Blood Count 4.74 X10*6/uL (4.20-5.50); White Blood Count 10.1 X10*3/uL (4.8-10.8)
[2025-09-30 17:50] LABS: Alanine Aminotransferase 13 U/L (0-31); Albumin Level 4.8 g/dL (3.5-5.0); Alkaline Phosphatase 76 U/L (39-117); Anion Gap 14 (12-20); Aspartate Amino Transferase 23 U/L (5-31); Blood Urea Nitrogen 19 mg/dL (9-16); Calcium 9.1 mg/dL (8.4-10.2); Carbon Dioxide 21 mmol/L (22-29); Chloride 108 mmol/L (96-108); Cholesterol 199 mg/dL (<200); Estimated Glomerular Filt Rate > 60; HDL Cholesterol 59 mg/dL (>40); Potassium 4.5 mmol/L (3.3-5.1); Sodium 138 mmol/L (135-145); Total Protein 8.0 g/dL (6.5-8.0); Triglycerides 95 mg/dL (<150)
[2025-09-30 18:04] LABS: Vitamin B12 230 pg/mL (200-900)
--- OUTSIDE RECORDS SUMMARY | 2025-09-30 19:22 | XMS_ITS | Patient Health Record ---
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 Raya (RETIRED) Jerrell CHAO Primary Care Provide r Marino Yen Unavailable [phone] Allergies No Known Allergies Reason For Referral No Information Medications Medication SIG (Take, Route, Frequency, Duration) Notes Start Date End Date Status Carisoprodol 350 MG Tablet TAKE 1 TABLET BY MOUTH EVERY NIGHT Oral; Duration: 30 Active oxyCODONE HCl 5 MG Tablet TAKE 1 TABLET BY MOUTH TWICE DAILY Oral; Duration: 30 Active Social History Tobacco Use: Social History Observation Description Date Details (start date - stop date) Former Smoker NA - NA Social History Drugs/Alcohol: Social Info Question Answer Notes Alcohol Screen Did you have a drink containing alcohol in the past year? Yes How often did you have a drink containing alcohol in the past year? Monthly or less (1 point) How many drinks did you have on a typical day when you were drinking in the past year? 1 or 2 drinks (0 point) How often did you have 6 or more drinks on one occasion in the past year? Never (0 point) Points 1 Interpretation Negative Tobacco Use: Social Info Question Answer Notes Tobacco Use/Smoking Patient is a former smoker How long has it been since you last smoked? > 10 years Additional Details Category Social Info Options Details Miscellaneous: Marital status: Occupation: Maintence in a [employer] Section Notes: Nonsmoker, no sig alcohol Problems Problem Type SNOMED Code ICD Code Onset Dates Problem Status W/U Status Risk Notes Problem Colon cancer screening (483909712) Colon cancer screening (Z12.11) Active confirmed Problem Pre-procedure evaluation check (122105912) Encounter for other preprocedural examination (Z01.818) Active confirmed Encounters Encounter Location Date Provider Diagnosis [facility] [address] [place] [address] 11/07/2024 Marino Galeas [facility] [address] [place] [address] 11/28/2024 Marino Galeas [facility] [address] [place] [address] 03/08/2025 Marino Galeas Plan Of Treatment Future Test Test Name Order Date COLONOSCOPY 07/30/2024 Insurance Providers Payer Name Payer Address Payer Phone Subscriber Number Group Number Insured Name Patient Relationship to Insured Coverage Start Date Coverage End Date [facility] [address] [place] [address] [id number] COLLINLesa MIKE Self - patient is the insured Medical (General) History Medical History History ICD Code Denies [place],DM,CVA,Lung disease,renal dise ase Shoulder pain Surgical History Surgery Date(Month/Year) shoulder surgery on left x 1 2019 Shoulder surgery on the right x 2 2016 Knee
== END 2025-09-30 15:55 | disposition home or self-care (01) ==
LOC: HO.LAB 15:54
PROVIDERS: PCP Physician Assistant; Visit Provider Physician Assistant
DX: Z00.00 Encounter for general adult medical examination without abnormal findings (principal); M25.511 Pain in right shoulder; M25.512 Pain in left shoulder; G89.29 Other chronic pain; E55.9 Vitamin D deficiency, unspecified; E66.9 Obesity, unspecified; F41.1 Generalized anxiety disorder; Z51.81 Encounter for therapeutic drug level monitoring; Z13.1 Encounter for screening for diabetes mellitus
CPT/HCPCS: 36415; 80048; 80061; 80076; 82306; 82607; 83036; 84207; 85025